=== PATIENT | male | born 1995 | race American Indian/Alaskan Native ===

== ENCOUNTER 2021-01-04 18:40 | Emergency (ER) | payer SELFPAY ==
[2021-01-05 03:44] VITALS: BP 121/66
== END 2021-01-04 21:35 | disposition home or self-care (01) ==
LOC: ED 18:40
DX: S43.005A Unspecified dislocation of left shoulder joint, initial encounter (principal); F17.200 Nicotine dependence, unspecified, uncomplicated; Z79.899 Other long term (current) drug therapy; X58.XXXA Exposure to other specified factors, initial encounter; Y93.89 Activity, other specified; Y92.89 Other specified places as the place of occurrence of the external cause; Y99.8 Other external cause status
CPT/HCPCS: 23650; 73030; 96361; 96374; 96375; 99284; J2270; J2405; J2704; J7030